=== PATIENT | male | born 1985 | race Caucasian/White ===

== ENCOUNTER 2016-10-20 06:55 | Emergency (ER) | payer OTHER ==
[2016-10-20] MEDS ORDERED: Cyclobenzaprine 10 MG TAB ONE (07:51)
[2016-10-20] MEDS ORDERED: Ibuprofen 800 MG TAB ONE (07:51)
[2016-10-20] MEDS ORDERED: predniSONE 20 MG TAB ONE (07:52)
--- NOTE | 2016-10-20 08:30 | ERRECORD ---
[facility] EMERGENCY RECORD HPI BACK (08:00 RW) CHIEF COMPLAINT: Patient presents for evaluation of injury, to the right lower back, Patient presents for evaluation of pain. HISTORIAN: History provided by patient. MECHANISM OF INJURY: Mechanism of injury: Body motion, lifting. LOCATION: Symptoms are localized to the back, to lumbar spine, right lumbar region. QUALITY: Described as similar to previous episodes. SEVERITY: Maximum severity of symptoms mild, Currently symptoms are mild, Maximum severity of pain rated as 7/10, Current severity of pain rated as 7/10. TIME COURSE: Sudden onset of symptoms, just prior to arrival. ASSOCIATED WITH: No associated symptoms. EXACERBATED BY: Patient's condition exacerbated by nothing. RELIEVED BY: Patient's condition relieved by nothing. RISK FACTORS: Risk factors reviewed. ROS (08:02 RW) CONSTITUTIONAL: Negative constitutional review of systems. EYES: Negative eye review of systems. ENT: Negative ears, nose, throat review of systems. CARDIOVASCULAR: Negative cardiovascular review of systems. RESPIRATORY: Negative respiratory review of systems. GI: Negative gastrointestinal review of systems. GENITOURINARY MALE: Negative genitourinary review of systems. MUSCULOSKELETAL: Historian reports back pain, reports injury. SKIN: Negative skin review of systems. NEUROLOGIC: Negative neurologic review of systems. ENDOCRINE: Negative endocrine review of systems. HEMO/LYMPHATIC: Normal hematologic/lymphatic system review. ALLERGIC/IMMUNOLOGIC: Normal allergy/immunologic system review. PSYCHIATRIC: Negative psychiatric review of systems. NOTES: All systems reviewed, negative except as described above. [place] [facility]: Notes: childhood asthma, migraines, Flu vaccine not up to date, Tetanus not up to date, Pneumococcal vaccine not up to date. Reviewed with patient 10/20/2016. MALE SURGICAL HISTORY: Surgical history of orthopedic surgery, L4, L5, Date of surgery April 2016, Notes: decompression, Patient has no surgical history, vasectomy 4yrs ago, adenoids. PSYCHIATRIC HISTORY: No previous psychiatric history. SOCIAL HISTORY: Patient drinks socially, Patient denies drug use, Patient is a former tobacco user, chewed tobacco, Tobacco history notes: quit several days ago. Reviewed with patient 10/20/2016. KNOWN ALLERGIES &a-1R&a+25V*p+0X*[id number]*c202B*c15G*c2P*p-0X&a-25V&a+1R Name: Ken Langley : 1985 M30 MedRec: [id number] AcctNum: [id number] Prepared: TueOct 20, 2016 09:15 by Interface Page 1 of 3 D [facility] EMERGENCY RECORD iodine: Reaction: Anaphylaxis lyrica pcn Tramadol Zanaflex CURRENT MEDICATIONS No recorded medications VITAL SIGNS (07:27 [facility]) VITAL SIGNS: BP: 135/75, Pulse: 70 (Irregular), Resp: 20 (Non-Labored), Temp: 96.4 (Oral), Pain: 7 (Constant), O2 sat: 98 on Room Air, Time: 10/20/2016 07:27. PHYSICAL EXAM (08:02 RW) CONSTITUTIONAL: Vital Signs Reviewed. HEAD: Head exam normal. EYES: Eye exam normal. ENT: ENT exam normal. NECK: Neck exam normal. RESPIRATORY CHEST: Respiratory and chest exam normal. CARDIOVASCULAR: Cardiovascular assessment normal. ABDOMEN MALE: Abdominal exam normal. BACK: Back exam included findings of normal inspection, range of motion normal, Tenderness, midline to the lower back, paraspinal to the right lower. UPPER EXTREMITY: Upper extremity exam normal. LOWER EXTREMITY: Lower extremity exam normal. NEURO: Neuro exam normal. SKIN: Skin exam normal. LYMPHATIC: Lymphatic exam normal. PSYCHIATRIC: Psychiatric exam normal. MEDICATION ADMINISTRATION SUMMARY Drug Name: Motrin, Dose Ordered: 1 tab(s), Route: Oral, Status: Given, Time: 07:58 10/20/2016, Drug Name: *predniSONE oral, Dose Ordered: 60 mg, Route: Oral, Status: Given, Time: 07:58 10/20/2016, Drug Name: Flexeril, Dose Ordered: 1 tab(s), Route: Oral, Status: Given, Time: 07:57 10/20/2016, *Additional information available in notes, Detailed record available in Medication Service section. PROBLEM LIST No recorded problems DIAGNOSIS (07:49 RW) FINAL: PRIMARY: LOW BACK PAIN. PRESCRIPTION &a-1R&a+25V*p+0X*j9455Q*c202B*c15G*c2P*p-0X&a-25V&a+1R Name: Ken Langley : 1985 M30 MedRec: [id number] AcctNum: [id number] Prepared: TueOct 20, 2016 09:15 by Interface Page 2 of 3 pMD [facility] EMERGENCY RECORD Ultram: TABLET : 50 mg : ORAL : Quantity: 2 Unit: tab(s) Route: ORAL Schedule: every 6 hours PRN Dispense: 20 Unit: tab(s) May substitute. Refills: No Refills POTENTIAL SEVERE INTERACTION: Flexeril (cyclobenzaprine HCl) Override Rationale: Patient tolerated similar in past, Potential interaction discussed with patient/family. (07:47 RWAG) NOTES: No Refills. (07:47 RWAG) Motrin: TABLET : 800 mg : ORAL : Quantity: 1 Unit: tab(s) Route: ORAL Schedule: 3 times a day Dispense: 12 Unit: tab(s) May substitute. Refills: No Refills . (07:48 RWAG) NOTES: No Refills. (07:48 RWAG) DISPOSITION PATIENT: Disposition Type: Discharge, Disposition: *Discharge Home, Disposition Transport: Car, Condition: Improved. (07:49 RWAG) Patient left the department. (08:20 [facility]) Song: ANDRES=MARIA R Tran, Peña LINARES=MARIA R Everett, Radha HILL=MD Rikki, Doe &a-1R&a+25V*p+0X*[id number]*c202B*c15G*c2P*p-0X&a-25V&a+1R Name: Ken Langley : 1985 M30 MedRec: [id number] AcctNum: [id number] Prepared: TueOct 20, 2016 09:15 by Interface Page 3 of 3 pMD MTDD
--- NOTE | 2016-10-20 09:18 | PICIS ---
[facility] EMERGENCY RECORD TRIAGE (TueOct 20, 2016 07:31 LEEW) TRIAGE NOTES: Fell at work from standing position forward injured back. No LOC. Previous history of rupture disk L4 L5. (TueOct 20, 2016 07:31 LEEW) PATIENT: NAME: Ken Langley, AGE: 30, GENDER: male, : Tue1985, TIME OF GREET: TueOct 20, 2016 06:56, PREFERRED LANGUAGE: Frisian, ETHNICITY: Not or , ECODE BILLING MAP: [facility] ER, SSN: [id number], Zip Code: [address], KG WEIGHT: 99.79, PHONE: , , , PERSON ID: [id number], [facility] (TueOct 20, 2016 07:31 LEEW) COMPLAINT: FELL AT WORK. (TueOct 20, 2016 07:31 LEEW) ADMISSION: URGENCY: 2 Emergent, ADMISSION SOURCE: Other, TRANSPORT: CAR, BED: ER -03. (TueOct 20, 2016 07:31 LEEW) IMMUNIZATIONS: Notes: UP TO DAY PER PATIENT. (08:06 BE) PROVIDERS: TRIAGE NURSE: Peña Castellanos RN. (TueOct 20, 2016 07:31 LEEW) VITAL SIGNS: BP 135/75, Pulse 70, (Irregular), Resp 20, (Non-Labored), Temp 96.4, (Oral), Pain 7, (Constant), O2 Sat 98, on Room Air, Time 10/20/2016 07:27. (07:27 [facility]) PREVIOUS VISIT ALLERGIES: iodine. (TueOct 20, 2016 07:31 LEEW) iodine. (08:06 [facility]) KNOWN ALLERGIES iodine: Reaction: Anaphylaxis lyrica pcn Tramadol Zanaflex CURRENT MEDICATIONS No recorded medications VITAL SIGNS (07:27 [facility]) VITAL SIGNS: BP: 135/75, Pulse: 70 (Irregular), Resp: 20 (Non-Labored), Temp: 96.4 (Oral), Pain: 7 (Constant), O2 sat: 98 on Room Air, Time: 10/20/2016 07:27. NURSING ASSESSMENT: BACK (08:16 BE) CONSTITUTIONAL: Complex assessment performed, Patient arrives ambulatory, Gait steady, History obtained from patient, Patient appears comfortable, Patient cooperative, Patient alert, Oriented to person, place and time, Skin warm, Skin dry, Skin normal in color, Mucous membranes pink, Mucous membranes moist, Patient is well-groomed. BACK: Back assessment findings include tenderness to, bilateral middle back, bilateral lower back, no paresthesias to extremities, no weakness to extremities, no incontinence of bowel or bladder. &a-1R&a+25V*p+0X*i2078L*c202B*c15G*c2P*p-0X&a-25V&a+1R Name: Ken Langley : 1985 M30 MedRec: [id number] AcctNum: [id number] Prepared: TueOct 20, 2016 09:15 by Interface Page [address] [facility] EMERGENCY RECORD NECK: Neck assessment findings include trachea midline. NURSING PROCEDURE: DISCHARGE NOTE DISCHARGE: Patient discharged to home, ambulating without assistance, friend driving, accompanied by friend, Summary of Care printed/ provided, Discharge instructions given to patient, Simple or moderate discharge teaching performed, by PEÑA HECK, EXPLAINED DISCHARGE INSTRUCTIONS, Prescriptions given and instructions on side effects given, Above person(s) verbalized understanding of discharge instructions and follow-up care, Notes: PEÑA RN TRUAGED AND DISCHARGED PATIENT. 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 APPLY ICE PACK EVERY 2-4 HOURS FOR 20 MIN. NO PROLONG SITTING, Prescriptions given and instructions on side effects given, Name of prescription(s) given: MOTRIN, Above person(s) verbalized understanding of discharge instructions and follow-up care, Patient treated and evaluated by physician, Notes: PATIENT DISCHARGE AND TURNOVER TO LAB. (08:14 [facility]) BELONGINGS: Belongings and valuables with patient upon arrival to the Emergency Department include:, Belongings and valuables with patient at time of discharge include:, jacket, pants, scarf, shoes, Belongings remain with patient, Valuables remain with patient. (08:17 [facility] [place]) Belongings and valuables with patient at time of discharge include:, Belongings remain with patient, Valuables remain with patient. (08:14 [facility]) MEDICATION ADMINISTRATION SUMMARY Drug Name: Motrin, Dose Ordered: 1 tab(s), Route: Oral, Status: Given, Time: 07:58 10/20/2016, Drug Name: *predniSONE oral, Dose Ordered: 60 mg, Route: Oral, Status: Given, Time: 07:58 10/20/2016, Drug Name: Flexeril, Dose Ordered: 1 tab(s), Route: Oral, Status: Given, Time: 07:57 10/20/2016, *Additional information available in notes, Detailed record available in Medication Service section. MEDICATION SERVICE Flexeril: Order: Flexeril (cyclobenzaprine HCl) - Dose: 1 tab(s) : Oral Schedule: Now Ordered by: Doe Brandt MD Entered by: Doe Brandt MD TueOct 20, 2016 07:45 , Acknowledged by: Radha Everett RN TueOct 20, 2016 07:50 Documented as given by: Radha Everett RN TueOct 20, 2016 07:57 Patient, Medication, Dose, Route and Time verified prior to &a-1R&a+25V*p+0X*o4878X*c202B*c15G*c2P*p-0X&a-25V&a+1R Name: Ken Langley : 1985 M30 MedRec: [id number] AcctNum: [id number] Prepared: TueOct 20, 2016 09:15 by Interface Page [address] [facility] EMERGENCY RECORD administration. Amount given: 10 mg, Site: Medication administered P.O., Patient appears Awake and alert- acceptable, Correct patient, time, route, dose and medication confirmed prior to administration, Patient advised of actions and side-effects prior to administration, Allergies confirmed and medications reviewed prior to administration, Administered by ALEXANDRA, Patient in position of comfort, Side rails up, Cart in lowest position. Motrin: Order: Motrin (ibuprofen) - Dose: 1 tab(s) : Oral Schedule: Now Ordered by: Doe Brandt MD Entered by: Doe Brandt MD TueOct 20, 2016 07:44 , Acknowledged by: Radha Everett RN TueOct 20, 2016 07:50 Documented as given by: Radha Everett RN TueOct 20, 2016 07:58 Patient, Medication, Dose, Route and Time verified prior to administration. Amount given: 800MG, Site: Medication administered P.O., Patient appears Awake and alert- acceptable, Correct patient, time, route, dose and medication confirmed prior to administration, Patient advised of actions and side-effects prior to administration, Allergies confirmed and medications reviewed prior to administration, Administered by PEÑA CASTELLANOS RN, Patient in position of comfort, Side rails up, Cart in lowest position, Family at bedside. predniSONE oral: Order: predniSONE oral (prednisone) - Dose: 60 mg : Oral Schedule: Now Notes: 60mg Ordered by: Doe Brandt MD Entered by: Doe Brandt MD TueOct 20, 2016 07:45 , Acknowledged by: Radha Everett RN TueOct 20, 2016 07:50 Documented as given by: Radha Everett RN TueOct 20, 2016 07:58 Patient, Medication, Dose, Route and Time verified prior to administration. Amount given: 60MG, Site: Medication administered P.O., Patient appears Awake and alert- acceptable, Correct patient, time, route, dose and medication confirmed prior to administration, Patient advised of actions and side-effects prior to administration, Allergies confirmed and medications reviewed prior to administration, Administered by PEÑA CASTELLANOS RN, Patient in position of comfort, Side rails up, Cart in lowest position, Family at bedside. HPI BACK (08:00 [facility]) CHIEF COMPLAINT: Patient presents for evaluation of injury, to the right lower back, Patient presents for evaluation of pain. HISTORIAN: History provided by patient. MECHANISM OF INJURY: Mechanism of injury: Body motion, lifting. LOCATION: Symptoms are &a-1R&a+25V*p+0X*w0606J*c202B*c15G*c2P*p-0X&a-25V&a+1R Name: Ken Langley : 1985 M30 MedRec: [id number] AcctNum: [id number] Prepared: TueOct 20, 2016 09:15 by Interface Page 3 of 6 pMD [facility] EMERGENCY RECORD localized to the back, to lumbar spine, right lumbar region. QUALITY: Described as similar to previous episodes. SEVERITY: Maximum severity of symptoms mild, Currently symptoms are mild, Maximum severity of pain rated as 7/10, Current severity of pain rated as 7/10. TIME COURSE: Sudden onset of symptoms, just prior to arrival. ASSOCIATED WITH: No associated symptoms. EXACERBATED BY: Patient's condition exacerbated by nothing. RELIEVED BY: Patient's condition relieved by nothing. RISK FACTORS: Risk factors reviewed. ROS (08:02 [facility]) CONSTITUTIONAL: Negative constitutional review of systems. EYES: Negative eye review of systems. ENT: Negative ears, nose, throat review of systems. CARDIOVASCULAR: Negative cardiovascular review of systems. RESPIRATORY: Negative respiratory review of systems. GI: Negative gastrointestinal review of systems. GENITOURINARY MALE: Negative genitourinary review of systems. MUSCULOSKELETAL: Historian reports back pain, reports injury. SKIN: Negative skin review of systems. NEUROLOGIC: Negative neurologic review of systems. ENDOCRINE: Negative endocrine review of systems. HEMO/LYMPHATIC: Normal hematologic/lymphatic system review. ALLERGIC/IMMUNOLOGIC: Normal allergy/immunologic system review. PSYCHIATRIC: Negative psychiatric review of systems. NOTES: All systems reviewed, negative except as described above. PAST MEDICAL HISTORY (08:06 [facility]) MEDICAL HISTORY: Notes: childhood asthma, migraines, Flu vaccine not up to date, Tetanus not up to date, Pneumococcal vaccine not up to date. Reviewed with patient 10/20/2016. MALE SURGICAL HISTORY: Surgical history of orthopedic surgery, L4, L5, Date of surgery April 2016, Notes: decompression, Patient has no surgical history, vasectomy 4yrs ago, adenoids. PSYCHIATRIC HISTORY: No previous psychiatric history. SOCIAL HISTORY: Patient drinks socially, Patient denies drug use, Patient is a former tobacco user, chewed tobacco, Tobacco history notes: quit several days ago. Reviewed with patient 10/20/2016. PHYSICAL EXAM (08:02 [facility]) CONSTITUTIONAL: Vital Signs Reviewed. HEAD: Head exam normal. EYES: Eye exam normal. ENT: ENT exam normal. NECK: Neck exam normal. RESPIRATORY CHEST: Respiratory and chest exam normal. &a-1R&a+25V*p+0X*x9950S*c202B*c15G*c2P*p-0X&a-25V&a+1R Name: Ken Langley : 1985 M30 MedRec: [id number] AcctNum: [id number] Prepared: TueOct 20, 2016 09:15 by Interface Page [address] [facility] EMERGENCY RECORD CARDIOVASCULAR: Cardiovascular assessment normal. ABDOMEN MALE: Abdominal exam normal. BACK: Back exam included findings of normal inspection, range of motion normal, Tenderness, midline to the lower back, paraspinal to the right lower. UPPER EXTREMITY: Upper extremity exam normal. LOWER EXTREMITY: Lower extremity exam normal. NEURO: Neuro exam normal. SKIN: Skin exam normal. LYMPHATIC: Lymphatic exam normal. PSYCHIATRIC: Psychiatric exam normal. EVENTS TRANSFER: Triage to Emergency Emergency Room -03. (TueOct 20, 2016 07:31 LEEW) Removed from Emergency Emergency Room -03. (08:20 [facility]) PROBLEM LIST No recorded problems DIAGNOSIS (07:49 RWAG) FINAL: PRIMARY: LOW BACK PAIN. DISPOSITION PATIENT: Disposition Type: Discharge, Disposition: *Discharge Home, Disposition Transport: Car, Condition: Improved. (07:49 RWAG) Patient left the department. (08:20 [facility]) INSTRUCTION (07:49 RWAG) DISCHARGE: BACK PAIN (ACUTE OR CHRONIC). FOLLOWUP: Follow up with Primary Care Physician as needed. SPECIAL: Follow-up with your PCP. PRESCRIPTION Ultram: TABLET : 50 mg : ORAL : Quantity: 2 Unit: tab(s) Route: ORAL Schedule: every 6 hours PRN Dispense: 20 Unit: tab(s) May substitute. Refills: No Refills POTENTIAL SEVERE INTERACTION: Flexeril (cyclobenzaprine HCl) Override Rationale: Patient tolerated similar in past, Potential interaction discussed with patient/family. (07:47 RWAG) NOTES: No Refills. (07:47 RWAG) Motrin: TABLET : 800 mg : ORAL : Quantity: 1 Unit: tab(s) Route: ORAL Schedule: 3 times a day Dispense: 12 Unit: tab(s) May substitute. Refills: No Refills . (07:48 RWAG) NOTES: No Refills. (07:48 RWAG) IMAGING (08:34 [facility]) *DISCHARGE INSTRUCTIONS RECEIPT: Image captured from scanner. &a-1R&a+25V*p+0X*u1808H*c202B*c15G*c2P*p-0X&a-25V&a+1R Name: Ken Langley : 1985 1 MedRec: [id number] AcctNum: [id number] Prepared: TueOct 20, 2016 09:15 by Interface Page [address] [facility] EMERGENCY RECORD *SUPPLY CHARGE SHEET: Image captured from scanner. ADMIN (09:09 [facility]) DIGITAL SIGNATURE: MD Rikki, Doe. Song: ANDRES=MARIA R Castellanos, Peña LINARES=MARIA R Everett, Radha RWAG=MD Brandt Richard &a-1R&a+25V*p+0X*e7969G*c202B*c15G*c2P*p-0X&a-25V&a+1R Name: Ken Langley : 1985 [facility] MedRec: [id number] AcctNum: [id number] Prepared: TueOct 20, 2016 09:15 by Interface Page [address] [facility] MEDICATION RECONCILIATION You were seen in the Emergency Department on: TueOct 20, 2016 KNOWN ALLERGIES iodine: Reaction: Anaphylaxis lyrica pcn Tramadol Zanaflex MEDICATIONS GIVEN WHILE IN THE EMERGENCY DEPARTMENT Motrin (ibuprofen) - Dose: 1 tab(s) : Oral predniSONE oral (prednisone) - Dose: 60 milligram(s) : Oral Flexeril (cyclobenzaprine HCl) - Dose: 1 tab(s) : Oral Notes from the emergency department Reviewed with patient PRESCRIPTIONS (2) Printed (2) Ultram : TABLET : 50 mg : ORAL Quantity: 2, Unit: tab(s), Route: ORAL, Schedule: every 6 hours PRN, Dispense: 20 Unit: tab(s) &a-1R&a+25V*p+0X*l9158R*c202B*c15G*c2P*p-0X&a-25V&a+1R Name: Ken Langley : 1985 1 MedRec: [id number] AcctNum: [id number] Prepared: Naomi Oct 20, 2016 09:15 by Interface Maria Esther HERNANDEZ
== END 2016-10-20 08:12 | disposition home or self-care (01) ==
LOC: NAV ERS 06:55
DX: M54.5 Low back pain (principal); Z87.891 Personal history of nicotine dependence
CPT/HCPCS: 99001; 99283; J7506

== ENCOUNTER 2017-08-29 17:51 | Emergency (ER) | payer OTHER ==
[2017-08-29] MEDS ORDERED: Ibuprofen 800 MG TAB ONE (18:48)
[2017-08-29] MEDS ORDERED: Cephalexin 250 MG CAP ONE (19:01)
== END 2017-08-29 19:09 | disposition home or self-care (01) ==
LOC: NAV ERS 17:51
DX: J02.0 Streptococcal pharyngitis (principal); L03.319 Cellulitis of trunk, unspecified; G43.909 Migraine, unspecified, not intractable, without status migrainosus; G89.29 Other chronic pain; Z87.891 Personal history of nicotine dependence; Z79.899 Other long term (current) drug therapy; Z79.891 Long term (current) use of opiate analgesic
CPT/HCPCS: 87430; 99283